=== PATIENT | male | born 1990 | race Caucasian/White ===

== ENCOUNTER 2024-08-09 10:01 | Outpatient (CLI) | payer MEDICARE, OTHER, SELFPAY | END 2024-08-09 10:02 | disposition home or self-care (01) | LOC: ANHAUDIO 10:03 | PROVIDERS: PCP Nurse Practitioner Family; Visit Provider Nurse Practitioner Family | DX: Z01.10 Encounter for examination of ears and hearing without abnormal findings (principal); Z76.89 Persons encountering health services in other specified circumstances | CPT/HCPCS: 92552; 92556; 92567 ==

== ENCOUNTER 2025-07-16 12:13 | Outpatient (CLI) | payer MEDICARE, OTHER, SELFPAY ==
--- NOTE | ~2025-07-16 | XR_ITS ---
X-rays right hand Indication: Injury Comparison: None Technique: 4 views right hand Findings/Impression: 1. Oblique mildly displaced fracture proximal fifth metacarpal. 2. No other acute abnormality identified. Reviewed, dictated and finalized at location R.
--- OUTSIDE RECORDS SUMMARY | 2025-07-16 12:53 | XMS_ITS | Clinical Summary ---
Author Organization [facility] Address [facility] [place] [address] Care Team Providers Care Automation And Controls Instructor Name Role Phone Halie Alas MD Primary Care Provider [phone] Allergies No known active allergies Medications Vitamin D, Ergocalciferol, 20469 UNITS capsule Take 1 capsule by mouth once a week. Once weekly on Wednesday Active hydrOXYzine 50 MG capsule Take 50 mg by mouth 2 (two) times a day. 12PM and 9PM Active aripiprazole 15 MG tablet Take 15 mg by mouth daily. At 5 pm Active sertraline 50 MG tablet Take 50 mg by mouth daily. At 5 pm Active doxepin 100 MG capsule Take 1 capsule by mouth nightly. At 7 pm Active gabapentin 300 MG capsule Take 300 mg by mouth nightly. At 7 pm Active lisinopril 10 MG tablet Take 10 mg by mouth daily. At 7pm Active melatonin 3 MG tablet Take 3 mg by mouth nightly at bedtime. Active metoprolol succinate 25 MG 24 hr tablet Take 25 mg by mouth daily. At 9pm. Hold if pulse <60 bpm. Active polyethylene glycol powder Take 17 g by mouth daily. Dissolve powder in 240 mL water. At bedtime at 9 pm. Active pravastatin 40 MG tablet Take 40 mg by mouth nightly at bedtime. Active baclofen 10 MG tablet Take 10 mg by mouth 3 (three) times daily as needed (for back pain/spasms. Max 3 doses per 24 hours.). Active benzonatate 100 MG capsule Take 100 mg by mouth 3 (three) times daily as needed for Cough (Not to exceed max of three doses per day.). Active Neomycin-Bacitr acin-Polymyxin (NEOSPORIN ORIGINAL) 3.5-400-5000 Ointment Apply 1 g topically daily for 30 days. 28.3 g 8 Active Immunizations Immunization Administration Dates Next Due Tdap (Boostrix) 01/27/2018 Social History Tobacco Use Types Packs/Day Years Used Date Smoking Tobacco: Never Smokeless Tobacco: Never Alcohol Use Standard Drinks/Week Comments No 0 (1 standard drink = 0.6 oz pur e alcohol) Sex and Gender Information Value Date Recorded Sex Assigned at Not on file Legal Sex Male 7:08 PM CDT Gender Identity Not on file Sexual Orientation Not on file Last Filed Vital Signs Vital Sign Reading Time Taken Comments Blood Pressure 153/100 08/01/2019 11:32 AM CDT Pulse 113 08/01/2019 11:32 AM CDT Temperature 36.8 C (98.2 F) 08/01/2019 11:32 AM CDT Respiratory Rate 20 08/01/2019 11:32 AM CDT Oxygen Saturation 98% 08/01/2019 11:32 AM CDT Inhaled Oxygen Concentration - - Weight 87.1 kg (192 lb) 08/01/2019 11:32 AM CDT Height 165.1 cm (5' 5) 08/01/2019 11:32 AM CDT Body Mass Index 31.95 08/01/2019 11:32 AM CDT Plan of Treatment Health Maintenance Due Date Last Done Comments Annual Physical 1991 Hepatitis C 2006 HPV Vaccines (1 - 3-dose SCDM series) 2015 COVID-19 Vaccine ( season) 2025 DTaP, Tdap and Td Vaccines (10 - Td or Tdap) 01/28/2028 01/27/2018, 06/18/2015, 05/16/2015, Additional history exists Hepatitis B Vaccines Completed 08/11/2000, 07/07/1999, 06/05/1999 Meningococcal B Vaccine Aged Out No l onger eligible based on patient's age to complete this topic Meningococcal Vaccine Aged Out No demetris arian eligible based on patient's age to complete this topic Pneumococcal Vaccine: Pediatrics (0 to 5 Years) and At-Risk Patients (6 to 49 Years) Aged Out No longer eligible based on patient's age to complete this topic RSV Immunizations Under 20 Months Aged Out No longer eligible based on patient's age to complete this topic Insurance [place] Care Teams Automation And Controls Instructor Relationship Specialty Start Date End Date Halie Alas MD [address] [place] [address] [place]ST[place] LOPEZ [address] PCP - General 11/21/15
--- OUTSIDE RECORDS SUMMARY | 2025-07-16 12:53 | XMS_ITS | Encounter Summary ---
Author Organization [facility] Address [address] [facility] [address] [place] [address] Phone Care Team Providers Care Russian History Professor Name Role Phone Halie Alas MD Primary Care Provider + Halie Alas MD Unavailable Encounter Details Date Type Department Care Team (Late st Contact Info) Description 06/30/2021 Ophth Exam [facility] [address] [place] [phone] Krystle Victor MD PhD [address] [facility] [address] [place] [address] Social History Tobacco Use Types Packs/Day Years Used Date Smoking Tobacco: Never Assessed Sex and Gender Information Value Date Recorded Sex Assigned at Not on file 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 Able to fix and follow with each eye. Tonometry (Tonopen, 7:28 PM) Right eye Left eye Pressure 21 21 Pupils Dark Light Shape React APD Right eye 4 2.5 Round Brisk None Left eye 4 2.5 Round Brisk None Visual Kaiser Right eye Left eye Full Full Extraocular Movement Right eye Left eye Full Full Alternating XT OU. Versions and ductions checked. Dilation Both eyes: Tropicamide, 2.5% Phenylephrine @ 7:28 PM External Exam Right eye Left eye External Upper cheek erythema Normal Slit Lamp Exam Right eye Left eye Lids/Lashes Shallow abrasion upp er and lower lid, well-approximated Normal Conjunctiva/Sclera White and quiet White and ben et Cornea Clear, no stain Clear Anterior Chamber Deep and quiet Deep and quiet Iris Round and reactive Round and alex ctive Lens Clear Clear Vitreous Normal, clear view t o posterior pole Normal, clear view to posterior pole Fundus Exam Right eye Left eye Disc Normal, perfused Normal, perfuse d Macula Normal, flat, attached Normal, f lat, attached Vessels Normal Normal Periphery Normal, limited exam due to patient cooperation Normal, limited exam due to patient cooperation Care Teams Russian History Professor Relationship Specialty Start Date End Date Halie Alas MD [address] [place], [place] [id number] PCP - General 06/30/21 Halie Alas MD [address] [place], [place] [id number] 08/28/20 documented as of this encounter
--- OUTSIDE RECORDS SUMMARY | 2025-07-16 12:53 | XMS_ITS | Clinical Summary ---
Author Organization [facility] Address [address] [place] [address] Care Team Providers Care Tso Name Role Phone Halie Alas MD Primary Care Provider + Halie Alas MD Unavailable [phone] Allergies Active Allergy Reactions Criticality Noted Date Comments Amoxicillin-Pot Clavulanate Unknown High 02/04/20 22 Medications acetaminophen (TYLENOL) 325 mg tablet Take 2 tablets by mouth every 4 (four) hours as needed Active baclofen (LIORESAL) 10 mg tablet Take 10 mg by mouth 3 (three) times a day as needed Active benzonatate (TESSALON) 100 mg capsule Take 100 mg by mouth 3 (three) times a day as needed Active sertraline (ZOLOFT) 50 mg tablet 2 Active omeprazole (PriLOSEC) 20 mg capsule 2 Active neomycin-bacitr acnZn-polymyxnB 3.5-500-10,000 jl-tmfk-wobr ointment Apply 1 g topically daily 8 Active Triple Antibiotic ointment 2 Active metoprolol XL (TOPROL-XL) 25 mg extended release tablet 2 Active melatonin tablet Take 1 tablet by mouth daily Active hydrOXYzine (VISTARIL) 50 mg capsule 2 Active gabapentin (NEURONTIN) 300 mg capsule 2 Active ergocalciferol (VITAMIN D) 50,000 unit capsule 2 Active doxepin (SINEquan) 100 mg capsule [address] (DEPAKOTE) 250 mg EC tablet 2 Active bacitracin 500 unit/gram ointment 2 Active ARIPiprazole (ABILIFY) 15 mg tablet 2 Active diphenhydrAMINE (BENADRYL) 25 mg capsule Take 25 mg by mouth every 6 (six) hours as needed for itching Active Active Problems Problem Noted Date Diagnosed Date Right orbital fracture 07/08/2021 Overview (02/07/2022): Seen in ED 06/30/21 s/p fall at retirement, CT with fractures of R medial orbital floor and LP with partial herniation of IR through fracture. Longstanding prominent RXT with possible worsening after trauma. Assessment & Plan (02/09/2022 6:07 PM CDT): Last seen in [facility] 06/2021 as ED follow-up. Exam with full motility, possible mild enophthalmos but unable to sit still for Bri. Discussed with oculoplastics who advised observation for this modest posterior fracture. Per family, patient appears comfortable and at baseline for his visual habits. They describe that his longstanding RXT also seems to be at baseline. Although exam is limited somewhat by patient cooperation, motility remains grossly full and there is no obvious enophthalmos. Limited anterior segment exam is unremarkable, as are the posterior poles and brief views of the periphery. Will continue to observe with repeat DFE in 1 year. In the meantime, MRx with local eye doctor and low threshold to contact us for suggestion of pain, changes in visual behavior, or change in the appearance/alignment of the eyes. Assessment & Plan (07/08/2021 4:04 PM CDT): Seen in ED s/p fall at retirement, CT with fractures of right medial orbital floor with partial herniation of IR through fracture. Motilities appear full on exam today. Has a prominent right XT but it has been present for years. Pt's mom denies the presence of oculocardiac signs/symptoms and the patient is stable functionally. He may have mild enophthalmos OD on exam but pt could not sit still for Bri. Stable to photos from ED. Dilated exam in ED was unremarkable. Of note, pt has [place] medicaid and needs special waivers to be seen in our clinics. I will send a note to our plastics fellow to get their opinion on the necessity of surgery in this case as the patient is functionally stable without pain/diplopia and minimal enophthalmos on gross examination. I will call pt's mother to discuss recommendations. Immunizations Immunization Administration Dates Next Due Tdap 03/02/2025,03/06/2022 Medical History Medical History Date Comments Down's syndrome Social History Tobacco Use Types Packs/Day Years Used Date Smoking Tobacco: Never Smokeless Tobacco: Never Personal Safety Answer Date Recorded Have you ever been in or are you currently in a harmful physical or emotional relationship or is someone making you feel afraid or unsafe? 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 Gender Identity Not on file Sexual Orientation Not on file Obstetrics History Last Filed Vital Signs Vital Sign Reading Time Taken Comments Blood Pressure 136/87 03/02/2025 7:00 AM CDT Pulse 70 03/02/2025 7:15 AM CDT Temperature 37.1 C (98.7 F) 03/02/2025 2:12 AM CDT Respiratory Rate 14 03/02/2025 7:15 AM CDT Oxygen Saturation 97% 03/02/2025 7:15 AM CDT Inhaled Oxygen Concentration - - Weight 90 kg (198 lb 6.6 oz) 03/02/2025 2:12 AM CDT Height 160 cm (5' 3) 05/06/2024 12:48 AM CDT Body Mass Index 35.15 05/06/2024 12:48 AM CDT Plan of Treatment Health Maintenance Due Date Last Done Comments Depression Screening 1988 Hepatitis C Screening 1988 Varicella Vaccines (1 of 2 - 13+ 2-dose series) 2001 Regular Well Visit/Exam 18-64 2006 HPV Vaccines (1 - 3-dose SCDM series) 2015 Covid-19 Vaccine ( season) 2025 07/12/2023, 09/04/2021, 09/04/2021, Additional history exists Influenza Vaccine (#1) 2025 , 08/10/2022, 09/04/2021, Additional history exists DTaP/Tdap/Td Vaccine (14 - Td or Tdap) 03/02/2035 03/02/2025, 03/06/2022, 02/01/2018, Additional history exists Hepatitis B Screening Completed 08/11/2000 , 07/07/1999, 06/05/1999 Pneumococcal vaccine <65 Aged Out No longer eligible based on patient's age to complete this topic Insurance [facility] MEDICARE [facility] MEDICARE [facility] Member Subscriber Plan / Payer ( fective 2022-Present) Name:Shawn Weinsteinkiley Ortiz Relation to Subscriber:Self Name:Keith Weinstein Payer ID:[id number] (NAIC) Group ID:Not on file Type:MEDICAID RISK OTHER Address: ATTN: CLAIMS DEPT [address] [place] [phone] Care Teams Tso Relationship Specialty Start Date End Date Halie Alas MD [address] [place] [address] [place] [address] PCP - General 06/30/21 Halie Alas MD [address] [place] [address] [address] [place] [address] 08/28/20
--- OUTSIDE RECORDS SUMMARY | 2025-07-16 12:53 | XMS_ITS | Clinical Summary ---
Author Organization [email or web address] Address [address] [place] [address] Care Team Providers Care Clothespin Drier Operator Name Role Phone Halie Alas MD Primary Care Provider [phone] Source Comments [email or web address],non-owned Affiliates and Associated Physician Practices is amultiple site organization consisting of ambulatory clinics and hospital sitesin [place], [place], [place] and [place]. This disclosure is being madepursuant to the Care Everywhere program and may not contain all information available regarding this patient. Last updated 18.[email or web address] Allergies Active Allergy Reactions Criticality Noted Date Comments Augmentin Unknown 06/10/2022 Medications * Be aware that medications may not be up to date on this document. Alwaysverify current medications with the patient. omeprazole (PriLOSEC) 20 MG capsule Take 1 (one) capsule by mouth daily before breakfast Active Cholecalciferol (vitamin D3) 1.25 MG (26491 UT) capsule Take 1 (one) capsule by mouth every 7 days Active metoprolol succinate XL 24hr (Toprol XL) 25 MG tablet Take 1 (one) tablet by mouth at bedtime Active cyanocobalamin (Vitamin B-12) 1000 MCG tablet Take 1 (one) tablet by mouth once daily Active hydrOXYzine HCl (Atarax) 25 MG tabletIndication s:Obsessive-comp ulsive disorder, unspecified type Take 1 (one) tablet by mouth once daily 31 tablet [address] (Depakote) 250 MG tabletIndication s:Obsessive-comp ulsive disorder, unspecified type Take 1 (one) tablet by mouth 2 times daily 62 tablet 5 5 Active gabapentin (Neurontin) 300 MG capsuleIndicatio ns:Obsessive-com pulsive disorder, unspecified type Take 2 (two) capsules by mouth at bedtime 62 capsule 5 5 Active sertraline (Zoloft) 50 MG tabletIndication s:Obsessive-comp ulsive disorder, unspecified type Take 1 (one) tablet by mouth once daily 31 tablet 5 5 Active doxepin (SINEquan) 100 MG capsuleIndicatio ns:Obsessive-com pulsive disorder, unspecified type Take 1 (one) capsule by mouth at bedtime 31 capsule 5 5 Active ARIPiprazole (Abilify) 15 MG tabletIndication s:Obsessive-comp ulsive disorder, unspecified type Take 1 (one) tablet by mouth once daily At 5p 31 tablet 5 5 Active melatonin 5 MG tabletIndication s:Obsessive-comp ulsive disorder, unspecified type Take 1 (one) tablet by mouth at bedtime 31 tablet 5 5 Active hydrOXYzine HCl (Atarax) 10 MG tabletIndication s:Obsessive-comp ulsive disorder, unspecified type Take 1 (one) tablet by mouth at bedtime 31 tablet 5 5 Active Active Problems No known active problems Social History Tobacco Use Types Packs/Day Years Used Date Smoking Tobacco: Never Smokeless Tobacco: Never Tobacco Cessation:Counseling Given: Yes Sex and Gender Information Value Date Recorded Sex Assigned at Not on file Legal Sex Male 2:44 PM CDT Gender Identity Not on file Sexual Orientation Not on file Last Filed Vital Signs Vital Sign Reading Time Taken Comments Blood Pressure 140/84 08/30/2024 10:43 AM POULTRYMAN Pulse 98 08/30/2024 10:43 AM POULTRYMAN Temperature 36.2 C (97.2 F) 08/30/2024 10:43 AM POULTRYMAN Respiratory Rate 18 08/30/2024 10:43 AM POULTRYMAN Oxygen Saturation - - Inhaled Oxygen Concentration - - Weight 93.9 kg (207 lb) 08/30/2024 10:43 AM POULTRYMAN Height - - Body Mass Index - - Plan of Treatment Health Maintenance Due Date Last Done Comments MEDICARE AWV 12 MONTHS 1988 HIV SCREENING 2003 HEPATITIS C SCREENING 11/10/2006 DTAP/TDAP/TD VACCINES (1 - Tdap) 2007 HEPATITIS B VACCINE (1 of 3 - 19+ 3-dose series) 2007 HPV VACCINE (1 - 3-dose SCDM series) 2015 DEPRESSION SCREENING 10/25/2024 COVID-19 VACCINE (3 - 2024- season) 2025 09/04/2021, 01/29/2021 INFLUENZA VACCINE (#1) 2025 , 08/10/2022, 09/04/2021, Additional history exists ZOSTER VACCINE (1 of 2) 2038 HIB VACCINE Aged Out No longer eligi ble based on patient's age to complete this topic MENINGOCOCCAL (Group B) VACCINE SHARED DECISION-MAKING Aged Out No longer eligible based on patient's age to complete this topic MENINGOCOCCAL GROUPS A/C/Y/W VACCINE Aged Out No longer eligible based on patient's age to complete this topic PNEUMOCOCCAL VACCINE Aged Out No long er eligible based on patient's age to complete this topic Insurance MEDICARE MEDICAID - [place] [address] [place] [id number] Care Teams Clothespin Drier Operator Relationship Specialty Start Date End Date Halie Alas MD [address] [place] [address] [place]a [id number] PCP - General 04/18/21
== END 2025-07-16 12:14 | disposition home or self-care (01) ==
PROVIDERS: PCP Nurse Practitioner Family; Visit Provider Physician Assistant Surgical
DX: S62.396A Other fracture of fifth metacarpal bone, right hand, initial encounter for closed fracture (principal); X58.XXXA Exposure to other specified factors, initial encounter
CPT/HCPCS: 73130

== ENCOUNTER 2025-07-30 10:28 | Outpatient (CLI) | payer MEDICARE, MEDICAID, SELFPAY ==
--- NOTE | ~2025-07-30 | XR_ITS ---
EXAMINATION: XR hand RT min 3V, 07/30/2025 10:35 CDT HISTORY: S69.91XA - Unspecified injury of right wrist, hand and fi... COMPARISON: No comparisons available. Findings: Healing fracture of the proximal fifth metacarpal No significant degenerative changes. Soft tissues unremarkable. Impression: Healing fracture Reviewed, dictated and finalized at location P. Impression: Healing fracture
--- OUTSIDE RECORDS SUMMARY | 2025-07-30 11:48 | XMS_ITS | Clinical Summary ---
Author Organization [facility] Address [address] [place] [address] Care Team Providers Care Engagement Manager Name Role Phone Halie Alas MD Primary Care Provider + Halie Alas MD Unavailable [phone] Allergies Active Allergy Reactions Criticality Noted Date [...] mg capsule 2 Active neomycin-bacitr acnZn-polymyxnB 3.5-500-10,000 pu-gmuq-beot ointment Apply 1 g topically daily 8 [...] Seen in ED 06/30/21 s/p fall at intermediate, CT with fractures of R medial orbital floor and LP with partial herniation of IR through fracture. Longstanding prominent RXT with possible worsening after trauma. Assessment & Plan (02/09/2022 6:07 PM CDT): Last seen in [facility] 06/2021 as ED follow-up. 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 Gender Identity Not on file Sexual Orientation [...] patient's age to complete this topic Insurance [facility] MEDICARE [facility] MEDICARE [facility] Member Subscriber Plan / Payer ( fective 2022-Present) Name:Shawn Weinsteinkiley Ortiz Relation to Subscriber:Self Name:Keith Weinstein Payer ID:[id number] (NAIC) Group ID:Not on file Type:MEDICAID RISK OTHER Address: ATTN: CLAIMS DEPT [address] [place] [phone] Care Teams Engagement Manager Relationship Specialty Start Date End Date Halie Alas MD [address] [place] [address] [place] [address] PCP - General 06/30/21 Halie Alas MD [address] [place] [address] [address] [place] [address] 08/28/20
--- OUTSIDE RECORDS SUMMARY | 2025-07-30 11:48 | XMS_ITS | Encounter Summary ---
Author Organization [facility] Address [address] [place] [address] Phone Care Team Providers Care Software Integration Developer Name Role Phone Halie Alas MD Primary Care Provider + Halie Alas MD Unavailable [phone] Encounter Details Date Type Department Care Team (Late st Contact Info) Description 06/30/2021 Ophth Exam [facility] [address] [place] [phone] Krystle Victor MD PhD [address] [facility] [address] [place] [address] Social History Tobacco Use Types Packs/Day Years Used Date Smoking Tobacco: Never Assessed Sex and Gender Information Value Date Recorded Sex Assigned at Not on file 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
--- OUTSIDE RECORDS SUMMARY | 2025-07-30 11:49 | XMS_ITS | Clinical Summary ---
Author Organization [facility] Address [address] [facility] [place] [address] Care Team Providers Care Toll Gate Tender Name Role Phone Halie Alas MD Primary Care Provider [phone] Allergies No known active allergies Medications Vitamin D, Ergocalciferol, 66368 UNITS capsule Take 1 capsule by mouth [...] patient's age to complete this topic Insurance [place] Care Teams Toll Gate Tender Relationship Specialty Start Date End Date Halie Alas MD [address] [place] [address] [place] LOPE[place] [address] PCP - General 11/21/15
--- OUTSIDE RECORDS SUMMARY | 2025-07-30 11:49 | XMS_ITS | Clinical Summary ---
Author Organization [facility] [employer] [employer] Address [address] [place] [address] Care Team Providers Care Bottling Line Attendant Name Role Phone Halie Alas MD Primary Care Provider [phone] Source Comments [facility] [facility],non-owned Affiliates and Associated Physician Practices is amultiple site organization consisting of ambulatory clinics and hospital sitesin [place], [place], [place] and [place]. This disclosure is being madepursuant to the Care Everywhere program and may not contain all information available regarding this patient. Last updated 18.[facility] [employer] [facility] [employer] Allergies Active Allergy Reactions Criticality Noted Date Comments Augmentin Unknown 06/10/2022 Medications * Be aware that medications may not be up to date on this document. Alwaysverify current medications with the patient. omeprazole (PriLOSEC) 20 MG capsule Take 1 (one) capsule by mouth daily before breakfast Active Cholecalciferol (vitamin D3) 1.25 MG (92947 UT) capsule Take 1 (one) capsule by [...] Comments Blood Pressure 140/84 08/30/2024 10:43 AM FLAKE MILLER HELPER Pulse 98 08/30/2024 10:43 AM FLAKE MILLER HELPER Temperature 36.2 C (97.2 F) 08/30/2024 10:43 AM FLAKE MILLER HELPER Respiratory Rate 18 08/30/2024 10:43 AM FLAKE MILLER HELPER Oxygen Saturation - - Inhaled Oxygen Concentration - - Weight 93.9 kg (207 lb) 08/30/2024 10:43 AM FLAKE MILLER HELPER Height - - Body Mass Index - [...] this topic Insurance MEDICARE MEDICAID - [place] [address] [id number] Care Teams Bottling Line Attendant Relationship Specialty Start Date End Date Halie Alas MD [address] [place] [address] [place]ST[place]agen[place] [id number] PCP - General 04/18/21
--- OUTSIDE RECORDS SUMMARY | 2025-07-30 11:49 | XMS_ITS | Patient Health Record ---
Author Organization [facility] Address [address] [place] [address] Care Team Providers Care Talent Acquisition Coordinator Name Role Phone Jacqueline Mitchell Unavailable [phone] Allergies No Known Allergies Reason For Referral No Information Medications Medication SIG (Take, Route, Frequency, Duration) Notes Start Date End Date Status Ondansetron HCl 4 MG Tablet Oral 04/23/2022 Active Metoprolol Succinate ER 25 MG Tablet Extended Release 24 Hour Oral 04/23/2022 Active Sertraline HCl 50 MG Tablet Oral 04/23/2022 Active Doxycycline Hyclate 100 MG Capsule Oral 04/23/2022 Active Gabapentin 300 MG Capsule Oral 04/23/2022 Active Divalproex Sodium 250 MG Tablet Delayed Release Oral 04/23/2022 Active Doxepin HCl 100 MG Capsule Oral 04/23/2022 Active Sulfamethoxazole-Trime thoprim 800-160 MG Tablet Oral 04/23/2022 Active Omeprazole 20 MG Capsule Delayed Release Oral 04/23/2022 Active Fluticasone Propionate Diskus 50 MCG/ACT Aerosol Powder Breath Activated Inhalation *Reorder from [employer] for eRx and Interaction Alerts* 04/23/2022 Active Melatonin 5 MG Tablet Oral 04/23/2022 Active Bacitracin 500 UNIT/GM Ointment External 04/23/2022 Active ALPRAZolam 0.5 MG Tablet Oral 04/23/2022 Active hydrOXYzine Pamoate 50 MG Capsule Oral 04/23/2022 Active Depakote 250 MG Tablet Delayed Release Oral 04/23/2022 Active ARIPiprazole 15 MG Tablet Oral 04/23/2022 Active Ergocalciferol 1.25 MG (89207 UT) Capsule Oral 04/23/2022 Active Immunizations Vaccine Route Administration Date Status Comme nts DTaP Unknown 05/25/1994 Administered DTP Unknown 01/26/1989 Administered DTP Unknown 04/09/1989 Administered DTP Unknown 05/14/1989 Administered DTP Unknown 06/07/1990 Administered Hep A, Adult Unknown 08/07/2009 Administered Hep B, adolescent or pediatr ic (11-19), 3 dose schedule Unknown 06/05/1999 Administered Hep B, adolescent or pediatr ic (11-19), 3 dose schedule Unknown 07/07/1999 Administered Hep B, adolescent or pediatr ic (11-19), 3 dose schedule Unknown 08/11/2000 Administered Hib, unspecified formulation Unknown 10/26/1990 Adminis tered Influenza virus vaccine, quadrivalent (IIV4), split virus, 0.25 mL dosage Unknown 09/14/2013 Administered Influenza virus vaccine, quadrivalent (IIV4), split virus, 0.25 mL dosage Unknown 09/01/2016 Administered Influenza virus vaccine, quadrivalent (IIV4), split virus, 0.25 mL dosage Unknown 09/27/2017 Administered Influenza virus vaccine, quadrivalent (IIV4), split virus, 0.25 mL dosage Unknown 10/25/2017 Administered Influenza virus vaccine, quadrivalent (IIV4), split virus, 0.25 mL dosage Unknown 07/25/2019 Administered Influenza, seasonal, injecta ble, preservative free, 3 yrs and above Unknown 09/06/2014 Administered MMR Unknown 06/07/1990 Administered MMR Unknown 05/25/1994 Administered Moderna Covid-19 Vaccine 1st dose Unknown 01/01/2021 Ad ministered Moderna Covid-19 Vaccine 1st dose Unknown 01/29/2021 Ad ministered Moderna Covid-19 Vaccine 1st dose Unknown 09/04/2021 Ad ministered Novel [id number], preservative free Unknown 08/12/2015 Administered Novel [id number], preservative free Unknown 09/09/2016 Administered Novel [id number], preservative free Unknown 07/19/2018 Administered Novel [id number], preservative free Unknown 07/07/2019 Administered OPV Unknown 01/26/1989 Administered OPV Unknown 04/09/1989 Administered OPV Unknown 05/14/1989 Administered OPV Unknown 06/07/1990 Administered OPV Unknown 05/25/1994 Administered Td (adult) preservative free Unknown 05/14/2004 Adminis tered Tdap Unknown 08/07/2009 Administered Tdap Unknown 05/16/2015 Administered Tdap Unknown 06/18/2015 Administered Tdap Unknown 01/27/2018 Administered Tdap Unknown 02/01/2018 Administered Social History Social History Additional Details Category Social Info Options Details Migrated Social History Migrated Social History Alcohol Intake: None 10/21/2020,Tobacco Years: Never smoker 08/27/2020 Plan Of Treatment No Information Insurance Providers Payer Name Payer Address Payer Phone Subscriber Number Group Number Insured Name Patient Relationship to Insured Coverage Start Date Coverage End Date [facility] [place] - Dos On Or After [address] [place] [address] [id number] KEITH WEINSTEIN Self - patient is the insured
== END 2025-07-30 10:29 | disposition home or self-care (01) ==
PROVIDERS: PCP Nurse Practitioner Family; Visit Provider Physician Assistant Surgical
DX: S69.91XD Unspecified injury of right wrist, hand and finger(s), subsequent encounter (principal); X58.XXXD Exposure to other specified factors, subsequent encounter
CPT/HCPCS: 73130